=== PATIENT | female | born 1965 | race Caucasian/White ===

== ENCOUNTER 2016-06-30 11:09 | Emergency (ER) | payer MEDICAID ==
[~2016-06-30] VITALS: Ht 170.2 cm; Wt 85.0 kg
[~2016-06-30 11:09] MED LIST: ALPR.25 PO; AUGM875T PO; FURO20TA PO; GLIP5TAB8 PO; LANTUS2P SQ; LEVO25TA39 PO; LITH150C PO; ONDA4TAB7 SL; PRED20 PO; TEGR100T PO
[2016-06-30 11:12] VITALS: BP 119/69; PULSE 88; RESP 20; TEMP 97.7; O2SAT 97
[2016-06-30] MEDS ORDERED: SODIUM CHLOR 0.9% 1000 ML INJ 1,000 ML IV SCH (11:26)
[2016-06-30 11:27] VITALS: BP 98/62; PULSE 82; RESP 16; O2SAT 100
[2016-06-30 11:29] VITALS: BP_SYST 116; BP_SYST 133; BP_SYST 87; BP_DIAS 53; BP_DIAS 65; BP_DIAS 68; RESP 14; RESP 16; O2SAT 98
[2016-06-30] MEDS ORDERED: ACETAMINOPHEN/HYDROcodone 325 MG/5 MG TAB PO ONE (11:30)
[2016-06-30] MEDS ORDERED: CYCL1TAB29 PO (11:40)
[2016-06-30] MEDS ORDERED: OMEP20TA PO (11:40)
[2016-06-30] MEDS ORDERED: NOVORP2 SQ (11:40)
[2016-06-30] MEDS ORDERED: LEVO100T5 PO (11:40)
[2016-06-30] MEDS ORDERED: FURO40TA PO (11:40)
[2016-06-30] MEDS ORDERED: HUMALOG SQ (11:40)
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
[2016-06-30 11:57] LABS: AUTOMATED NEUTROPHIL # 11.1 TH/MM3 (1.8-7.7); BASOPHIL # 0.1 TH/MM3 (0-0.2); BASOPHIL % 0.8 % (0.0-2.0); EOSINOPHIL # 0.1 TH/MM3 (0-0.4); EOSINOPHIL % 0.4 % (0.0-4.0); HEMATOCRIT 43.1 % (35.0-46.0); HEMO FLAGS DIFF FINAL; LYMPHOCYTE # 2.6 TH/MM3 (1.0-4.8); MEAN CELL VOLUME 88.8 FL (80.0-100.0); MONO % 5.3 % (0.0-8.0); NEUT % 75.5 % (16.0-70.0); PLATELET COUNT 302 TH/MM3 (150-450); RED BLOOD COUNT 4.85 MIL/MM3 (4.00-5.30); RED CELL DISTRIBUTION WIDTH 15.5 % (11.6-17.2); WHITE BLOOD COUNT 14.7 TH/MM3 (4.0-11.0)
[2016-06-30 12:00] VITALS: BP 133/65; PULSE 68; RESP 16; O2SAT 100
[2016-06-30 12:11] LABS: APTT (PATIENT) 28.9 SEC (24.3-30.1); INTERNATIONAL NORMALIZED RATIO 0.9 RATIO; PROTHROMBIN TIME - PATIENT 10.3 SEC (9.8-11.6)
[2016-06-30 12:27] LABS: ANION GAP 8 MEQ/L (5-15); BICARBONATE 24.8 MEQ/L (21.0-32.0); BLOOD UREA NITROGEN 10 MG/DL (7-18); CHLORIDE 104 MEQ/L (98-107); GLOMERULAR FILTRATION RATE 58 ML/MIN (>89); SODIUM (NA) 137 MEQ/L (136-145)
[2016-06-30 12:31] LABS: CREATINE KINASE 70 U/L (26-192); POTASSIUM 4.4 MEQ/L (3.5-5.1)
--- NOTE | 2016-06-30 12:32 | RADRPT ---
EXAM DATE/TIME: 06/30/2016 12:05 [facility] COMPARISON: No previous studies available for comparison. INDICATIONS : Syncopal episode on 06/27/16. Patient states she fell on concrete. MEDICAL HISTORY : Congestive heart failure. SURGICAL HISTORY : None. ENCOUNTER: Initial ACUITY: 4 - 6 days PAIN SCORE: 9/10 LOCATION: Bilateral chest FINDINGS: A single view of the chest demonstrates the lungs to be symmetrically aerated without evidence of mas s, infiltrate or effusion. The cardiomediastinal contours are unremarkable. Osseous structures are intact. CONCLUSION: Normal examination for a patient of this age. Josué Knapp MD on June 30, 2016 at 12:30 Board Certified Radiologist. This report was verified electronically.
--- NOTE | 2016-06-30 12:36 | RADRPT ---
EXAM DATE/TIME: 06/30/2016 11:52 [facility] COMPARISON: No previous studies available for comparison. INDICATIONS : Fell on face three days ago. RADIATION DOSE: 32.53 CTDIvol (mGy) MEDICAL HISTORY : Seizures. Cardiovascular disease Diabetes. SURGICAL HISTORY : None. ENCOUNTER: Initial ACUITY: 3 days PAIN SCALE: 0/10 LOCATION: cranial TECHNIQUE: Multiple contiguous axial images were obtained of the head. Using automated exposure control and adj ustment of the mA and/or kV according to patient size, radiation dose was kept as low as reasonably a chievable to obtain optimal diagnostic quality images. FINDINGS: CEREBRUM: The ventricles are normal for age. No evidence of midline shift, mass lesion, hemorrhage or acute in farction. No extra-axial fluid collections are seen. POSTERIOR FOSSA: The cerebellum and brainstem are intact. The 4th ventricle is midline. The cerebellopontine angle i s unremarkable. EXTRACRANIAL: The visualized portion of the orbits is intact. SKULL: The calvaria is intact. No evidence of skull fracture. CONCLUSION: Normal examination for a patient of this age. Josué Knapp MD on June 30, 2016 at 12:34 Board Certified Radiologist. This report was verified electronically.
--- NOTE | 2016-06-30 12:38 | RADRPT ---
EXAM DATE/TIME: 06/30/2016 11:52 [facility] COMPARISON: No previous studies available for comparison. INDICATIONS : Fell on face three days ago. RADIATION DOSE: 57.23 CTDIvol (mGy) MEDICAL HISTORY : Seizures. Cardiovascular disease Diabetes. SURGICAL HISTORY : None. ENCOUNTER: Initial ACUITY: 3 days PAIN SCORE: 0/10 LOCATION: facial TECHNIQUE: Volumetric scanning of the facial bones was performed. Using automated exposure control and adjustme nt of the mA and/or kV according to patient size, radiation dose was kept as low as reasonably achiev able to obtain optimal diagnostic quality images. FINDINGS: ORBITS: The orbital and infraorbital osseous structures are intact. The retroconal structures have a normal configuration. No radiopaque foreign bodies are seen. There is mild soft tissue swelling over the ri ght orbit. NASAL BONE: The nasal bone and maxillary spine are intact ZYGOMATIC ARCHES: Symmetric without evidence of fracture. SINUSES: The maxillary, ethmoid and frontal sinuses are intact. No air-fluid levels seen. NASAL CAVITY: Mild nasal septal deviation to the left. SOFT TISSUES: No radiopaque foreign bodies seen. No soft-tissue swelling is seen. INTRACRANIAL: No intracranial air seen. CRIBIFORM PLATE: Grossly intact. CONCLUSION: 1. Mild soft tissue swelling over the right orbit. 2. Otherwise, unremarkable exam. Josué Knapp MD on June 30, 2016 at 12:35 Board Certified Radiologist. This report was verified electronically.
--- NOTE | 2016-06-30 12:52 | RADRPT ---
EXAM DATE/TIME: 06/30/2016 11:52 [facility] COMPARISON: No previous studies available for comparison. INDICATIONS : Fell on face three days ago. RADIATION DOSE: 22.50 CTDIvol (mGy) MEDICAL HISTORY : Cardiovascular disease. Seizures. Diabetes. SURGICAL HISTORY : None. ENCOUNTER: Initial ACUITY: 3 days PAIN SCALE: 0/10 LOCATION: neck TECHNIQUE: Volumetric scanning of the cervical spine was performed. Multiplanar reconstructions in the sagittal, coronal and oblique axial planes were performed. Using automated exposure control and adjustment o f the mA and/or kV according to patient size, radiation dose was kept as low as reasonably achievable to obtain optimal diagnostic quality images. FINDINGS: VERTEBRAE: Normal vertebral body height. Mild primary degenerative changes are seen at C5-6 and C6-7. There is s ome very mild anterior subluxation of C5 over C6 by approximately 2 mm. There is some disc space narr owing at C5-6. No acute bony fracture.C2-C3: The bony spinal canal is normal in size. No evidence of disc bulge or herniation. The neural forami na are bilaterally patent. C3-C4: The bony spinal canal is normal in size. No evidence of disc bulge or herniation. The neural forami na are bilaterally patent. C4-C5: The bony spinal canal is normal in size. No evidence of disc bulge or herniation. The neural forami na are bilaterally patent. C5-C6: The bony spinal canal is normal in size. No evidence of disc bulge or herniation. The neural forami na are bilaterally patent. C6-C7: The bony spinal canal is normal in size. No evidence of disc bulge or herniation. The neural forami na are bilaterally patent. C7-T1: The bony spinal canal is normal in size. No evidence of disc bulge or herniation. The neural forami na are bilaterally patent. CONCLUSION: 1. No acute bony fracture. 2. Very mild anterior subluxation of C5 over C6. 3. Primary degenerative changes involving the mid to lower cervical spine. Josué Knapp MD on June 30, 2016 at 12:48 Board Certified Radiologist. This report was verified electronically.
[2016-06-30 13:00] VITALS: PULSE 70; RESP 16; O2SAT 100
--- NOTE | 2016-06-30 13:00 | RADRPT ---
EXAM DATE/TIME: 06/30/2016 12:08 [facility] COMPARISON: No previous studies available for comparison. INDICATIONS : Syncopal episode on 06/27/16. Patient states she fell on concrete. MEDICAL HISTORY : None. SURGICAL HISTORY : None. ENCOUNTER: Initial ACUITY: 4 - 6 days PAIN SCORE: 9/10 LOCATION: lumbar spine. FINDINGS: There are five non-rib bearing vertebral bodies. The vertebral bodies are in normal alignment withou t evidence of subluxation or scoliosis. The disc spaces are maintained. The posterior elements are intact without evidence of spondylolysis. The pedicles are intact. Bony mineralization is normal. No fracture is identified. Hypoplastic ribs at T12. CONCLUSION: Normal examination for a patient of this age. Josué Knapp MD on June 30, 2016 at 12:58 Board Certified Radiologist. This report was verified electronically.
--- NOTE | 2016-06-30 18:02 | EKG ---
Date Performed: 06/30/2016 Time Performed: 11:23:43 PTAGE: 50 years EKG: Sinus rhythm NORMAL ECG PREVIOUS TRACING : 03/07/2007 14.18 No significant change from previous tracing noted. DOCTOR: Lukasz Epstein Interpretating Date/Time 06/30/2016 18:01:20
== END 2016-06-30 14:00 | disposition left against medical advice (07) ==
LOC: NEPC 11:09
DX: R55 Syncope and collapse (principal); R42 Dizziness and giddiness; I95.9 Hypotension, unspecified; E03.9 Hypothyroidism, unspecified; S00.83XA Contusion of other part of head, initial encounter; S00.33XA Contusion of nose, initial encounter; I50.9 Heart failure, unspecified; J44.9 Chronic obstructive pulmonary disease, unspecified; E11.9 Type 2 diabetes mellitus without complications; Z79.4 Long term (current) use of insulin; F17.210 Nicotine dependence, cigarettes, uncomplicated; W18.30XA Fall on same level, unspecified, initial encounter; Y93.89 Activity, other specified; Y92.89 Other specified places as the place of occurrence of the external cause
CPT/HCPCS: 70450; 70486; 71010; 72110; 72125; 80048; 82550; 83735; 83880; 84443; 84484; 85025; 85610; 85730; 93005; 99284; J7030

== ENCOUNTER 2016-07-22 01:12 | Emergency (ER) | payer MEDICAID ==
[~2016-07-22] VITALS: Ht 170.2 cm; Wt 82.0 kg
[~2016-07-22 01:12] MED LIST changes: -ALPR.25 PO; -AUGM875T PO; +CYCL1TAB29 PO; -FURO20TA PO; +FURO40TA PO; -GLIP5TAB8 PO; +HUMALOG SQ; +LEVO100T5 PO; -LEVO25TA39 PO; -LITH150C PO; +NOVORP2 SQ; +OMEP20TA PO; -ONDA4TAB7 SL; -PRED20 PO; -TEGR100T PO
[2016-07-22 01:14] VITALS: BP 111/56; PULSE 82; RESP 18; TEMP 98.2; O2SAT 99
[2016-07-22] MEDS ORDERED: ACETAMINOPHEN 325 MG TAB PO ONE (02:30)
[2016-07-22] MEDS ORDERED: SODIUM CHLORIDE 0.9% FLUSH 5 ML FLUSH IVF PRN (02:30)
[2016-07-22 02:39] LABS: AUTOMATED NEUTROPHIL # 6.6 TH/MM3 (1.8-7.7); BASOPHIL # 0.1 TH/MM3 (0-0.2); BASOPHIL % 0.7 % (0.0-2.0); EOSINOPHIL # 0.1 TH/MM3 (0-0.4); EOSINOPHIL % 1.1 % (0.0-4.0); HEMATOCRIT 43.5 % (35.0-46.0); HEMO FLAGS DIFF FINAL; LYMPH % 26.3 % (9.0-44.0); LYMPHOCYTE # 2.7 TH/MM3 (1.0-4.8); MEAN CORPUSCULAR HEMOGLOBIN 31.5 PG (27.0-34.0); MONO % 7.3 % (0.0-8.0); NEUT % 64.6 % (16.0-70.0); PLATELET COUNT 292 TH/MM3 (150-450); RED BLOOD COUNT 4.83 MIL/MM3 (4.00-5.30); WHITE BLOOD COUNT 10.3 TH/MM3 (4.0-11.0)
[2016-07-22 03:12] LABS: BICARBONATE 24.1 MEQ/L (21.0-32.0); POTASSIUM 3.5 MEQ/L (3.5-5.1)
--- NOTE | 2016-07-22 03:43 | RADRPT ---
EXAM DATE/TIME: 07/22/2016 03:08 [facility] COMPARISON: CT BRAIN W/O CONTRAST, June 30, 2016, 11:52. INDICATIONS : Dizziness and near syncope. Elevated blood pressure. RADIATION DOSE: 47.11 CTDIvol (mGy) MEDICAL HISTORY : Congestive hearrt failure. Hypertension. Chronic obstructive pulmonary disease.Diabetes. SURGICAL HISTORY : None. ENCOUNTER: Initial ACUITY: 1 day PAIN SCALE: 0/10 LOCATION: cranial TECHNIQUE: Multiple contiguous axial images were obtained of the head. Using automated exposure control and adj ustment of the mA and/or kV according to patient size, radiation dose was kept as low as reasonably a chievable to obtain optimal diagnostic quality images. FINDINGS: CEREBRUM: The ventricles are normal for age. No evidence of midline shift, mass lesion, hemorrhage or acute in farction. No extra-axial fluid collections are seen. POSTERIOR FOSSA: The cerebellum and brainstem are intact. The 4th ventricle is midline. The cerebellopontine angle i s unremarkable. EXTRACRANIAL: The visualized portion of the orbits is intact. SKULL: The calvaria is intact. No evidence of skull fracture. CONCLUSION: No acute disease. Fahad Pineda MD on July 22, 2016 at 3:41 Board Certified Radiologist. This report was verified electronically.
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
--- NOTE | 2016-07-22 14:22 | EKG ---
Date Performed: 07/22/2016 Time Performed: 01:45:51 PTAGE: 50 years EKG: Sinus rhythm PROBABLE INFERIOR MYOCARDIAL INFARCTION ABNORMAL ECG PREVIOUS TRACING : 06/30/2016 11.23 DOCTOR: Scottie Cruz Interpretating Date/Time 07/22/2016 14:18:03
== END 2016-07-22 05:00 | disposition home or self-care (01) ==
LOC: NEPC 01:12
DX: R11.0 Nausea (principal); F43.9 Reaction to severe stress, unspecified; R94.31 Abnormal electrocardiogram [ECG] [EKG]; E11.9 Type 2 diabetes mellitus without complications; F17.200 Nicotine dependence, unspecified, uncomplicated; Z79.4 Long term (current) use of insulin; Z79.82 Long term (current) use of aspirin; Z86.59 Personal history of other mental and behavioral disorders; Z87.09 Personal history of other diseases of the respiratory system; Z86.79 Personal history of other diseases of the circulatory system; Z87.39 Personal history of other diseases of the musculoskeletal system and connective tissue; Z86.69 Personal history of other diseases of the nervous system and sense organs
CPT/HCPCS: 70450; 80048; 85025; 93005

== ENCOUNTER 2016-10-23 07:50 | Emergency (ER) | payer MEDICAID, OTHER ==
[~2016-10-23] VITALS: Ht 170.2 cm; Wt 81.5 kg
[2016-10-23 07:51] VITALS: BP 129/73; PULSE 87; RESP 20; TEMP 98; O2SAT 100
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
[2016-10-23] MEDS ORDERED: ALBUAER3 INH (08:01)
[2016-10-23] MEDS ORDERED: PRED50 PO (08:01)
== END 2016-10-23 08:24 | disposition home or self-care (01) ==
LOC: NEPK 07:50
DX: J20.9 Acute bronchitis, unspecified (principal); F17.200 Nicotine dependence, unspecified, uncomplicated
CPT/HCPCS: 99284

== ENCOUNTER 2017-02-06 07:32 | Emergency (ER) | payer OTHER ==
[~2017-02-06] VITALS: Ht 170.2 cm; Wt 82.0 kg
[~2017-02-06 07:32] MED LIST changes: +ALBUAER3 INH; +PRED50 PO
[2017-02-06 07:33] VITALS: BP 105/51; PULSE 78; RESP 16; TEMP 98.8; O2SAT 100
[2017-02-06] MEDS ORDERED: LANTUS2P SQ (07:45)
[2017-02-06] MEDS ORDERED: AMOX500C PO (07:45)
[2017-02-06] MEDS ORDERED: ALBUAER3 INH (07:51)
[2017-02-06] MEDS ORDERED: AZIT500T2 PO (07:51)
[2017-02-06] MEDS ORDERED: PRED-503 PO (07:51)
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
== END 2017-02-06 08:02 | disposition home or self-care (01) ==
LOC: NEPK 07:32
DX: J40 Bronchitis, not specified as acute or chronic (principal); J06.9 Acute upper respiratory infection, unspecified; E11.9 Type 2 diabetes mellitus without complications; F17.200 Nicotine dependence, unspecified, uncomplicated; Z76.0 Encounter for issue of repeat prescription; Z79.4 Long term (current) use of insulin; Z79.01 Long term (current) use of anticoagulants; Z86.59 Personal history of other mental and behavioral disorders; Z87.09 Personal history of other diseases of the respiratory system; Z86.79 Personal history of other diseases of the circulatory system; Z87.39 Personal history of other diseases of the musculoskeletal system and connective tissue; Z86.69 Personal history of other diseases of the nervous system and sense organs
CPT/HCPCS: 99284

== ENCOUNTER 2017-07-30 00:14 | Emergency (ER) | payer OTHER ==
[~2017-07-30 00:14] MED LIST changes: +AZIT500T2 PO; +CYCL10TA PO; -CYCL1TAB29 PO; -OMEP20TA PO; +OMEP20TA93 PO; +PRED-503 PO
[2017-07-30 00:16] VITALS: BP 153/70; PULSE 75; RESP 16; TEMP 96.4; O2SAT 99
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
== END 2017-07-30 02:25 | disposition home or self-care (01) ==
LOC: NEPE 00:14
DX: E11.649 Type 2 diabetes mellitus with hypoglycemia without coma (principal); T38.3X5A Adverse effect of insulin and oral hypoglycemic [antidiabetic] drugs, initial encounter; F17.210 Nicotine dependence, cigarettes, uncomplicated; Z79.4 Long term (current) use of insulin
CPT/HCPCS: 99282

== ENCOUNTER 2017-08-10 08:43 | Emergency (ER) | payer OTHER ==
[~2017-08-10] VITALS: Ht 170.2 cm; Wt 80.0 kg
[~2017-08-10 08:43] MED LIST changes: -AZIT500T2 PO; -NOVORP2 SQ; -PRED-503 PO; -PRED50 PO
[2017-08-10 08:50] VITALS: BP 111/54; PULSE 75; RESP 16; TEMP 97.7; O2SAT 100
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
[2017-08-10] MEDS ORDERED: CITA20TA4 PO (09:17)
== END 2017-08-10 09:22 | disposition home or self-care (01) ==
LOC: NEPD 08:43
DX: E11.649 Type 2 diabetes mellitus with hypoglycemia without coma (principal); F17.200 Nicotine dependence, unspecified, uncomplicated; Z79.4 Long term (current) use of insulin
CPT/HCPCS: 99281

== ENCOUNTER 2017-10-29 16:23 | Emergency (ER) | payer MEDICAID, OTHER ==
[~2017-10-29 16:23] MED LIST changes: +CITA20TA4 PO
[2017-10-29 16:46] VITALS: BP 109/68; PULSE 76; RESP 16; TEMP 97.5; O2SAT 100
[2017-10-29] MEDS ORDERED: trazadone PO (17:04)
[2017-10-29] MEDS ORDERED: DICL75TA PO (17:04)
[2017-10-29] MEDS ORDERED: MECL12.574 PO (17:04)
[2017-10-29] MEDS ORDERED: PRED20 PO (17:07)
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
[2017-10-30] MEDS ORDERED: TRAZ100T10 PO (10:31)
== END 2017-10-29 17:35 | disposition home or self-care (01) ==
LOC: NEPK 16:23
DX: M54.2 Cervicalgia (principal); G89.29 Other chronic pain; E11.9 Type 2 diabetes mellitus without complications; F17.200 Nicotine dependence, unspecified, uncomplicated; Z79.4 Long term (current) use of insulin
CPT/HCPCS: 99283